=== PATIENT | male | born 1985 | race Caucasian/White ===

== ENCOUNTER 2016-11-26 23:39 | Emergency (ER) | payer BC ==
[2016-11-26 23:45] VITALS: BP 119/67; PULSE 88; TEMP 97.6; BMI 27.8
--- NOTE | 2016-11-27 00:04 | PDOC ---
History of Present Illness - History of Present Illness Initial Comments: 11/27/16 00:20 Patient is a 31 year old male with no significant medical hx who is presenting to the ED with two days of progressive left lower back pain. Patient states that his pain started yesterday morning after he woke up that was a mild pain but worsened today. The patient denies any trauma or heavy lifting. He reports that the pain worsens when he sits up and lies on his back. His pain relieves when he is lying flat on his stomach. 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 Denies urinary/bladder incontinence, weakness, numbness or tingling. <Felisa Skaggs - Last Filed: 11/27/16 01:32> <Doc Golden - Last Filed: 11/27/16 01:42> - General Chief Complaint: Back Pain Stated Complaint: BACK PAIN Time Seen by Provider: 11/27/16 00:03 Past History <Felisa Skaggs - Last Filed: 11/27/16 01:32> - Surgical History Abdominal Surgery: Yes (appendectomy) - Immunization History Immunization Up to Date: Yes - Psycho/Social/Smoking Cessation Hx Suicidal Ideation: No Smoking History: Current every day smoker Number of Cigarettes Smoked Daily: 6 Information on smoking cessation initiated: No Hx Alcohol Use: No Drug/Substance Use Hx: No Substance Use Type: None <Doc Golden - Last Filed: 11/27/16 01:42> - Past Medical History Allergies/Adverse Reactions: Allergies Allergy/AdvReac Type Severity Reaction Status Date / Time No Known Allergies Allergy Verified 11/26/16 23:44 Home Medications: Ambulatory Orders Cyclobenzaprine HCl [Flexeril 10 mg] 10 mg PO BID PRN #20 tablet 11/27/16 Ibuprofen [Motrin -] 600 mg PO QID #40 tablet 11/27/16 Review of Systems - Review of Systems Comments:: 11/27/16 00:25 GENERAL/CONSTITUTIONAL: No fever or chills. No weakness. HEAD, EYES, EARS, NOSE AND THROAT: No change in vision. No ear pain or discharge. No sore throat. CARDIOVASCULAR: No chest pain or shortness of breath. RESPIRATORY: No cough, wheezing, or hemoptysis. GASTROINTESTINAL: No nausea, vomiting, diarrhea or constipation. GENITOURINARY: No dysuria, frequency, or change in urination. MUSCULOSKELETAL: Left lower back pain. No joint or muscle swelling or pain. No neck pain. ENDOCRINE: No increased thirst. No abnormal weight change. SKIN: No rash NEUROLOGIC: No headache, vertigo, loss of consciousness, or change in strength/ sensation. <SharifaFelisa - Last Filed: 11/27/16 01:32> *Physical Exam - Vital Signs Last Vital Signs Temp Pulse Resp BP Pulse Ox 97.6 F 88 20 119/67 99 11/26/16 23:44 11/26/16 23:44 11/26/16 23:44 11/26/16 23:44 11/26/16 23:44 - Physical Exam Comments: 11/27/16 00:26 GENERAL: Awake, alert, and fully oriented, in no acute distress HEAD: No signs of trauma EYES: PERRLA, EOMI, sclera anicteric, conjunctiva clear ENT: Auricles normal inspection, hearing grossly normal, nares patent, oropharynx clear without exudates. Moist mucosa NECK: Normal ROM, supple, no lymphadenopathy, JVD, or masses LUNGS: Breath sounds equal, clear to auscultation bilaterally. No wheezes, and no crackles HEART: Regular rate and rhythm, normal S1 and S2, no murmurs, rubs or gallops ABDOMEN: Soft, nontender, normoactive bowel sounds. No guarding, no rebound. No masses EXTREMITIES: Normal range of motion, no edema. No clubbing or cyanosis. No cords, erythema, or tenderness NEUROLOGICAL: Cranial nerves II through XII grossly intact. Normal speech, normal gait SKIN: Warm, Dry, normal turgor, no rashes or lesions noted. HEMATOLOGIC/LYMPHATIC: No anemia, easy bleeding, or history of blood clots. ALLERGIC/IMMUNOLOGIC: No hives or skin allergy. <SharifaFelisa - Last Filed: 11/27/16 01:32> - Vital Signs Last Vital Signs Temp Pulse Resp BP Pulse Ox 97.6 F 88 20 119/67 99 11/26/16 23:44 11/26/16 23:44 11/26/16 23:44 11/26/16 23:44 11/26/16 23:44 <Doc Golden - Last Filed: 11/27/16 01:42> ED Treatment Course - RADIOLOGY Radiograph Interpretation: 11/27/16 01:32 Manager Application: (chacorta) Report Date: 11/27/2016 00:55:00 Report Status: Preliminary Begin of Report Content Referring Physician: Doc Golden Patient Name: Fabio Ventura THIS IS A PRELIMINARY REPORT FROM [facility] EXAM: CT abdomen and pelvis without contrast IMAGES: 872 INDICATION: Right flank pain DATE OF SERVICE: 2016-11-27 00:55:25.0 COMPARISON: none FINDINGS: Lung bases are clear. The visualized cardiac chambers are normal size and configuration. Normal unenhanced liver, gallbladder, pancreas, spleen, adrenal glands and kidneys. The stomach and abdominal small and large bowel are normal. There is no aortic aneurysm. There is no significant retroperitoneal lymphadenopathy. The pelvic small and large bowel are normal. There is no evidence of appendicitis, although the appendix is not clearly visualized. The urinary bladder and prostate gland are normal. No pelvic free fluid is identified. There is no significant pelvic lymphadenopathy. IMPRESSION: No localizing signs for acute pathology. THIS DOCUMENT HAS BEEN ELECTRONICALLY SIGNED Farhat Camarena MD 11/27/2016 01:28 HUMAIRA Macias Please call [facility] Supervisor [phone] ([phone]) with questions. End of Report Content <Felisa Skaggs - Last Filed: 11/27/16 01:32> *DC/Admit/Observation/Transfer - Attestations Scribe Attestion: 11/27/16 00:26 Documentation prepared by Felisa Skaggs, acting as medical affairs specialist for Doc Golden MD. <Felisa Skaggs - Last Filed: 11/27/16 01:32> - Discharge Dispostion Admit: No - Attestations Physician Attestion: 11/27/16 00:04 Dr. Doc Brewer, attest that this document has been prepared under my direction and personally reviewed by me in its entirety. I further attest, that it accurately reflects all work, treatment, procedures and medical decision -making performed by me. <Doc Golden - Last Filed: 11/27/16 01:42> Diagnosis at time of Disposition: Acute lumbar myofascial strain Qualifiers: Encounter type: initial encounter Qualified Code(s): S39.012A - Strain of muscle, fascia and tendon of lower back, initial encounter - Discharge Dispostion Disposition: HOME Condition at time of disposition: Good - Prescriptions Prescriptions: Cyclobenzaprine HCl [Flexeril 10 mg] 10 mg PO BID PRN #20 tablet PRN Reason: Back Pain Ibuprofen [Motrin -] 600 mg PO QID #40 tablet - Patient Instructions Printed Discharge Instructions: DI for Low Back Pain Additional Instructions: Fabio- Sorry that this hurts so much, Please take a day or two off from work. Return to us if worse or any problems. Follow up with your regular doctor. Best- Dr. Doc Golden
[2016-11-27] MEDS ORDERED: KETOROLAC TROMETHAMINE 60 MG/2 ML VIAL IM ONE (00:34)
[2016-11-27] MEDS ORDERED: methylPREDNISolone ACET (DEPO) 80 MG/1 ML VIAL IM ONE (00:34)
[2016-11-27] MEDS ORDERED: KETOROLAC TROMETHAMINE 60 MG/2 ML VIAL ONE (00:41)
[2016-11-27 01:55] LABS: URINE APPEARANCE CLEAR; URINE BILIRUBIN NEGATIVE (NEGATIVE); URINE BLOOD NEGATIVE (NEGATIVE); URINE COLOR YELLOW; URINE GLUCOSE (UA) NEGATIVE (NEGATIVE); URINE KETONE NEGATIVE (NEGATIVE); URINE LEUK ESTERASE NEGATIVE (NEGATIVE); URINE NITRITE NEGATIVE (NEGATIVE); URINE PROTEIN NEGATIVE (NEGATIVE); URINE UROBILINOGEN NEGATIVE mg/dL (0.2-1.0)
== END 2016-11-27 02:35 | disposition home or self-care (01) ==
LOC: JER 23:39
PROC: 3E0233Z Introduction of Anti-inflammatory into Muscle, Percutaneous Approach (ICD-10-PCS; principal; 2016-11-26)
PROC: 3E0233Z Introduction of Anti-inflammatory into Muscle, Percutaneous Approach (ICD-10-PCS; 2016-11-26)
DX: S39.012A Strain of muscle, fascia and tendon of lower back, initial encounter (principal); F17.210 Nicotine dependence, cigarettes, uncomplicated
CPT/HCPCS: 72131-TC; 74176-TC; 81003; 99282-25

== ENCOUNTER 2016-11-27 19:02 | Emergency (ER) | payer BC ==
[2016-11-27 19:15] VITALS: BMI 28.0
[2016-11-27] MEDS ORDERED: SODIUM CHLORIDE 1,000 ML IV STA (19:33)
[2016-11-27] MEDS ORDERED: KETOROLAC TROMETHAMINE 30 MG/1 ML VIAL IM ONE (19:33)
[2016-11-27] MEDS ORDERED: diazePAM CARPU-JECT 10 MG/2 ML DISP.SYRIN IVPUSH ONE (19:33)
[2016-11-27] MEDS ORDERED: KETOROLAC TROMETHAMINE 30 MG/1 ML VIAL ONE (19:44)
[2016-11-27] MEDS ORDERED: diazePAM CARPU-JECT 10 MG/2 ML DISP.SYRIN ONE (19:44)
[2016-11-27 20:18] LABS: BASOPHIL 0.4 % (0-2.0); EOSINOPHIL 0.1 % (0-4.5); MCH 28.9 pg (25.7-33.7); MCHC 33.1 g/dl (32.0-35.9); MEAN CELL VOLUME 87.3 fl (80-96); MEAN PLT VOLUME 8.8 fl (7.5-11.1); PLATELET COUNT 209 K/MM3 (134-434); RDW 13.4 % (11.9-15.9); WHITE BLOOD COUNT 14.6 K/mm3 (4.0-10.0)
--- NOTE | 2016-11-27 20:20 | PDOC ---
*Physical Exam - Vital Signs Last Vital Signs Temp Pulse Resp BP Pulse Ox 98.2 F 63 20 133/76 99 11/27/16 19:13 11/27/16 19:13 11/27/16 19:13 11/27/16 19:13 11/27/16 19:25 ED Treatment Course - LABORATORY CBC & Chemistry Diagram: 11/27/16 19:45 11/27/16 19:45 - Medications Given in the ED: ED Medications Discontinued Medications Generic Name Dose Route Start Last Admin Trade Name Amanda PRN Reason Stop Dose Admin Diazepam 5 mg 11/27/16 19:33 11/27/16 19:41 Valium Injection - IVPUSH 11/27/16 19:34 5 mg ONCE ONE Administration Ketorolac Tromethamine 30 mg 11/27/16 19:33 11/27/16 19:41 Toradol Injection - IM 11/27/16 19:34 30 mg ONCE ONE Administration Medical Decision Making - Medical Decision Making 11/27/16 20:20 Pt seen by the Advanced Practice Provider under my direct supervision Ancillary studies reviewed I agree with plan as outlined by the Advanced Practice Provider GARTH Otero *DC/Admit/Observation/Transfer Diagnosis at time of Disposition: Osteoarthritis of back, Bulging discs - Referrals Referrals: Daniel Cobos MD [Staff Physician] - - Patient Instructions Printed Discharge Instructions: DI for Low Back Pain Additional Instructions: FOLLOW UP WITH DR. COBOS (ORTHOPEDIST) THIS WEEK FOR FURTHER EVALUATION. CONTINUE MEDICATIONS PRESCRIBED BY PREVIOUS PROVIDER. TAKE WARM SHOWERS AND GET LOTS OF REST. Print Language: MONGOLIAN - Post Discharge Activity Work/School Note: Back to Work
[2016-11-27 20:37] LABS: ALBUMIN 4.3 g/dl (3.4-5.0); ALK PHOS 95 U/L (45-117); ANION GAP 6 (8-16); BILIRUBIN,TOTAL 0.7 mg/dL (0.2-1.0); CALCIUM 9.5 mg/dL (8.5-10.1); CO2 28 mmol/L (21-32); CREATININE 1.1 mg/dL (0.7-1.3); GLUCOSE,RANDOM 90 mg/dL (74-106); SGOT/AST 29 U/L (15-37); SGPT/ALT 71 U/L (12-78); TOT PROT 7.4 g/dl (6.4-8.2)
--- NOTE | 2016-11-27 22:25 | PDOC ---
History of Present Illness - General Chief Complaint: Pain, Acute Stated Complaint: BACK PAIN Time Seen by Provider: 11/27/16 19:18 History Source: Patient Exam Limitations: No Limitations - History of Present Illness Initial Comments: 11/27/16 22:20 31yo Male patient with no significant past medical history presents to ED c/o worsening back pain. Patient states he was seen in this ED 11-26-2016, treated and released. He states being prescribed Ibuprofen and Cyclobenzaprine but medications are not working. Associated: Nausea. Patient denies any other complaints at this time. PCP- None. Occurred: reports: yesterday Severity: reports: moderate Pain Location: reports: back Method of Injury: No: unknown, assault, direct blow, fall, motor vehicle crash, other Modifying Factors: improves with: pain medication Loss of Consciousness: no loss of consciousness Associated Symptoms (Fall): denies symptoms Past History - Travel Traveled outside of the country in the last 30 days: No Close contact w/someone who was outside of country & ill: No - Past Medical History Allergies/Adverse Reactions: Allergies Allergy/AdvReac Type Severity Reaction Status Date / Time No Known Allergies Allergy Verified 11/27/16 19:12 Home Medications: Ambulatory Orders Cyclobenzaprine HCl [Flexeril 10 mg] 10 mg PO BID PRN #20 tablet 11/27/16 Ibuprofen [Motrin -] 600 mg PO QID #40 tablet 11/27/16 - Surgical History Abdominal Surgery: Yes (appendectomy) - Immunization History Immunization Up to Date: Yes - Psycho/Social/Smoking Cessation Hx Suicidal Ideation: No Smoking History: Current every day smoker Number of Cigarettes Smoked Daily: 6 Information on smoking cessation initiated: No Hx Alcohol Use: No Drug/Substance Use Hx: No Substance Use Type: None Trauma Specific PMHX - Complaint Specific PMHX Arthritis: No Back Injury: No Neck Injury: No Hx Sacro Iliac Joint Dysfunction: No Review of Systems - Review of Systems Able to Perform ROS?: Yes Is the patient limited Irish proficient: No Musculoskeletal: Yes: Back Pain All Other Systems: Reviewed and Negative *Physical Exam - Vital Signs Last Vital Signs Temp Pulse Resp BP Pulse Ox 98.2 F 63 20 133/76 99 11/27/16 19:13 11/27/16 19:13 11/27/16 19:13 11/27/16 19:11/27/16 19:25 - Physical Exam General Appearance: Yes: Nourished, Appropriately Dressed, Moderate Distress. No: Apparent Distress, Mild Distress, Severe Distress Respiratory/Chest: positive: Lungs Clear, Normal Breath Sounds. negative: Chest Tender, Respiratory Distress, Accessory Muscle Use, Labored Respiration, Rapid RR, Rhonchi, Stridor, Wheezing Cardiovascular: positive: Regular Rhythm, Regular Rate. negative: Edema, JVD Gastrointestinal/Abdominal: positive: Normal Bowel Sounds, Soft. negative: Distended, Guarding, Rebound, Tenderness Musculoskeletal: positive: Normal Inspection, Muscle Spasm. negative: CVA Tenderness, Vertebral Tenderness Extremity: positive: Normal Capillary Refill, Normal Inspection, Normal Range of Motion. negative: Pedal Edema, Swelling, Calf Tenderness, Erythema, Inflammation Integumentary: positive: Normal Color, Dry, Warm. 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 NML intact, Fully Oriented, Alert, Normal Mood/ Affect, Normal Response, Motor Strength 5/5 ED Treatment Course - LABORATORY CBC & Chemistry Diagram: 11/27/16 19:45 11/27/16 19:45 - ADDITIONAL ORDERS Additional order review: Laboratory Results 11/27/16 19:45 Sodium 138 Potassium 4.3 Chloride 104 Carbon Dioxide 28 Anion Gap 6 L BUN 18 Creatinine 1.1 Creat Clearance w eGFR > 60 Random Glucose 90 Calcium 9.5 Total Bilirubin 0.7 AST 29 ALT 71 Alkaline Phosphatase 95 Total Protein 7.4 Albumin 4.3 11/27/16 19:45 RBC 5.13 MCV 87.3 MCHC 33.1 RDW 13.4 MPV 8.8 Neutrophils % 79.0 Lymphocytes % 14.8 Monocytes % 5.7 Eosinophils % 0.1 Basophils % 0.4 - RADIOLOGY Radiology Studies Ordered: Category Date Time Status ABDOMEN & PELVIS CT WITH CONTR [CT] Stat CT Scan 11/27/16 19:34 Ordered - Medications Given in the ED: ED Medications Discontinued Medications Generic Name Dose Route Start Last Admin Trade Name Freq PRN Reason Stop Dose Admin Diazepam 5 mg 11/27/16 19:33 11/27/16 19:41 Valium Injection - IVPUSH 11/27/16 19:34 5 mg ONCE ONE Administration Sodium Chloride 1,000 mls @ 1,000 mls/hr 11/27/16 19:33 11/27/16 19:41 Normal Saline - IV 11/27/16 20:32 1,000 mls/hr ASDIR STA Administration Ketorolac Tromethamine 30 mg 11/27/16 19:33 11/27/16 19:41 Toradol Injection - IM 11/27/16 19:34 30 mg ONCE ONE Administration *DC/Admit/Observation/Transfer Diagnosis at time of Disposition: Bulging discs Osteoarthritis of back Qualifiers: Spinal osteoarthritis complication: unspecified spinal osteoarthritis Qualified Code(s): 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 COBOS (ORTHOPEDIST) THIS WEEK FOR FURTHER EVALUATION. CONTINUE MEDICATIONS PRESCRIBED BY PREVIOUS PROVIDER. TAKE WARM SHOWERS AND GET LOTS OF REST. Print Language: KAZAKH - Post Discharge Activity Work/School Note: Back to Work
[2016-11-28 00:39] VITALS: BP 123/78; PULSE 74; TEMP 98.5
== END 2016-11-28 00:37 | disposition home or self-care (01) ==
LOC: JER 19:02
PROC: 3E033NZ Introduction of Analgesics, Hypnotics, Sedatives into Peripheral Vein, Percutaneous Approach (ICD-10-PCS; principal; 2016-11-27)
PROC: 3E0233Z Introduction of Anti-inflammatory into Muscle, Percutaneous Approach (ICD-10-PCS; 2016-11-27)
PROC: 3E0337Z Introduction of Electrolytic and Water Balance Substance into Peripheral Vein, Percutaneous Approach (ICD-10-PCS; 2016-11-27)
DX: M51.85 Other intervertebral disc disorders, thoracolumbar region (principal); M47.815 Spondylosis without myelopathy or radiculopathy, thoracolumbar region; F17.210 Nicotine dependence, cigarettes, uncomplicated
CPT/HCPCS: 36415; 74177-TC; 80053; 85025; 99282-25

== ENCOUNTER 2020-12-26 10:34 | Emergency (ER) | payer BC, OTHER ==
[2020-12-26 10:38] VITALS: BP 131/74; PULSE 75; TEMP 98.1; BMI 23.0
[2020-12-26] MEDS ORDERED: diazePAM 5 MG TABLET PO ONE (10:42)
[2020-12-26] MEDS ORDERED: KETOROLAC TROMETHAMINE 30 MG/1 ML VIAL IM ONE (10:42)
[2020-12-26] MEDS ORDERED: LIDOCAINE 5% TOPICAL PATCH TP ONE (10:43)
[2020-12-26] MEDS ORDERED: KETOROLAC TROMETHAMINE 30 MG/1 ML VIAL ONE (10:45)
[2020-12-26] MEDS ORDERED: LIDOCAINE 5% TOPICAL PATCH ONE (10:45)
[2020-12-26] MEDS ORDERED: diazePAM 5 MG TABLET ONE (10:46)
[2020-12-26] MEDS ORDERED: LIDOCAINE PATCH REMOVAL MC ONE (22:00)
== END 2020-12-26 11:47 | disposition home or self-care (01) ==
LOC: JERFT 10:34
PROC: 3E0233Z Introduction of Anti-inflammatory into Muscle, Percutaneous Approach (ICD-10-PCS; principal; 2020-12-26)
DX: M54.5 Low back pain (principal)
CPT/HCPCS: 99283-25

== ENCOUNTER 2022-01-30 22:41 | Observation (INO) | payer OTHER ==
[2022-01-30 22:45] VITALS: BMI 24.4
[2022-01-31 00:58] LABS: BASO % 0.7 % (0-2.0); HEMATOCRIT 42.8 % (35.4-49); HEMOGLOBIN 14.8 GM/dL (11.7-16.9); LYMPH % 23.6 % (8-40); MCH 30.4 pg (25.7-33.7); MCHC 34.6 g/dl (32.0-35.9); MEAN CELL VOLUME 87.9 fl (80-96); MONO % 11.9 % (3.8-10.2); NEUT % 61.8 % (42.8-82.8); PLATELET COUNT 226 10^3/uL (134-434); RBC 4.86 M/mm3 (4.00-5.60); RDW 13.4 % (11.9-15.9); WHITE BLOOD COUNT 9.2 K/mm3 (4.0-10.0)
[2022-01-31 01:22] LABS: CALCIUM 9.2 mg/dL (8.5-10.1)
[2022-01-31 01:23] LABS: ALBUMIN 4.2 g/dl (3.4-5.0); BLOOD UREA NITROGEN 17.5 mg/dL (7-18)
[2022-01-31 01:26] LABS: CREATININE 1.1 mg/dL (0.55-1.3)
[2022-01-31 01:28] LABS: BILIRUBIN,TOTAL 0.5 mg/dL (0.2-1); TOT PROT 7.5 g/dl (6.4-8.2)
[2022-01-31 06:35] LABS: HEMATOCRIT 41.2 % (35.4-49); HEMOGLOBIN 14.3 GM/dL (11.7-16.9); MCH 29.9 pg (25.7-33.7); MCHC 34.6 g/dl (32.0-35.9); MEAN CELL VOLUME 86.5 fl (80-96); MEAN PLT VOLUME 7.9 fl (7.5-11.1); PLATELET COUNT 219 10^3/uL (134-434); RBC 4.76 M/mm3 (4.00-5.60); RDW 13.5 % (11.9-15.9); WHITE BLOOD COUNT 8.1 K/mm3 (4.0-10.0)
[2022-01-31 06:56] LABS: CALCIUM 8.6 mg/dL (8.5-10.1)
[2022-01-31 06:58] LABS: ALBUMIN 3.9 g/dl (3.4-5.0); BLOOD UREA NITROGEN 14.6 mg/dL (7-18)
[2022-01-31 07:00] LABS: PHOSPHOROUS 2.8 mg/dL (2.5-4.9)
[2022-01-31 07:01] LABS: CREATININE 0.9 mg/dL (0.55-1.3); TOT PROT 7.2 g/dl (6.4-8.2)
[2022-01-31 07:02] LABS: BILIRUBIN,TOTAL 0.5 mg/dL (0.2-1)
[2022-01-31] MEDS ORDERED: ENOXAPARIN NA (PORCINE) 40 MG/0.4 ML DISP.SYRIN SQ ONE (09:13)
[2022-01-31] MEDS: ENOXAPARIN NA (PORCINE) 40 MG/0.4 ML DISP.SYRIN SQ SCH (09:25)
[2022-01-31] MEDS: SODIUM CHLORIDE 1,000 ML IV SCH (09:25)
[2022-01-31 10:40] LABS: EPI CELLS 1 /uL (0-25.1); HYALINE CASTS 0 /uL (0-3.1); PH,URINE 6.5 (5.0-8.0); URINE APPEARANCE CLEAR; URINE BACTERIA 6 /uL (0-1359); URINE BILIRUBIN NEGATIVE (NEGATIVE); URINE COLOR YELLOW; URINE GLUCOSE (UA) NEGATIVE (NEGATIVE); URINE KETONE 2+ (NEGATIVE); URINE LEUK ESTERASE NEGATIVE (NEGATIVE); URINE NITRITE NEGATIVE (NEGATIVE); URINE PROTEIN NEGATIVE (NEGATIVE); URINE RBC 45 /uL (0-23.9); URINE WBC 1 /uL (0-25.8)
[2022-01-31 10:49] LABS: METHADONE, UR NEGATIVE (NEGATIVE); PHENCYCLIDINE,URINE NEGATIVE (NEGATIVE)
[2022-01-31 10:50] LABS: COCAINE, UR NEGATIVE (NEGATIVE); OPIATES, URI NEGATIVE (NEGATIVE); URINE AMPHETAMINES NEGATIVE (NEGATIVE); URINE BARBITURATES NEGATIVE (NEGATIVE); URINE BENZODIAZEPINES NEGATIVE (NEGATIVE)
[2022-01-31] MEDS: LORATADINE 10 MG TABLET PO SCH (12:00)
[2022-01-31] MEDS ORDERED: LORATADINE 10 MG TABLET ONE (14:22)
[2022-02-01 07:48] VITALS: RESP 18
[2022-02-01] MEDS: LORATADINE 10 MG TABLET PO SCH (10:34)
[2022-02-01] MEDS: ENOXAPARIN NA (PORCINE) 40 MG/0.4 ML DISP.SYRIN SQ SCH (10:34)
[2022-02-01] MEDS: SODIUM CHLORIDE 1,000 ML IV SCH ×2 (12:00→12:01)
[2022-02-02 08:32] LABS: CHLORIDE 108 mmol/L (98-107); SODIUM 141 mmol/L (136-145)
[2022-02-02 08:39] LABS: CALCIUM 8.9 mg/dL (8.5-10.1)
[2022-02-02 08:40] LABS: ALBUMIN 3.7 g/dl (3.4-5.0); ANION GAP 5 MMOL/L (8-16); BLOOD UREA NITROGEN 11.1 mg/dL (7-18); CO2 27 mmol/L (21-32); GLUCOSE,RANDOM 110 mg/dL (74-106)
[2022-02-02 08:43] LABS: CREATININE 0.9 mg/dL (0.55-1.3); SGOT/AST 17 U/L (15-37); SGPT/ALT 28 U/L (13-61)
[2022-02-02 08:44] LABS: BILIRUBIN,TOTAL 0.4 mg/dL (0.2-1)
[2022-02-02 08:45] LABS: TOT PROT 6.9 g/dl (6.4-8.2)
[2022-02-02 08:46] LABS: ALK PHOS 82 U/L (45-117)
[2022-02-02] MEDS: ENOXAPARIN NA (PORCINE) 40 MG/0.4 ML DISP.SYRIN SQ SCH ×2 (09:33→09:37)
[2022-02-02] MEDS: SODIUM CHLORIDE 1,000 ML IV SCH (09:33)
[2022-02-02] MEDS: LORATADINE 10 MG TABLET PO SCH (09:33)
[2022-02-03 06:02] VITALS: TEMP 97.8
[2022-02-03] MEDS: LORATADINE 10 MG TABLET PO SCH (10:10)
[2022-02-03] MEDS: ENOXAPARIN NA (PORCINE) 40 MG/0.4 ML DISP.SYRIN SQ SCH (10:10)
[2022-02-03 10:20] VITALS: BP 124/70; PULSE 67
[2022-02-03 14:02] LABS: CHOLESTEROL 175 mg/dL (50-200); TRIGLYCERIDES 113 mg/dL (0-150)
[2022-02-03 14:03] LABS: LDL CHOLESTEROL (ONLY SJRH) 113 mg/dL (5-100)
[2022-02-03 14:04] LABS: HDL CHOLESTEROL 31 mg/dL (40-60)
== END 2022-02-03 13:45 | disposition home or self-care (01) ==
LOC: JER 22:41 → JERBED 01-31 01:48 → J4S 01-31 19:10
PROVIDERS: ADMIT Internal Medicine
PROC: 3E0337Z Introduction of Electrolytic and Water Balance Substance into Peripheral Vein, Percutaneous Approach (ICD-10-PCS; principal; 2022-01-31)
DX: R55 Syncope and collapse (principal); B97.4 Respiratory syncytial virus as the cause of diseases classified elsewhere; M54.50 Low back pain, unspecified; F12.10 Cannabis abuse, uncomplicated; F17.210 Nicotine dependence, cigarettes, uncomplicated; Z91.010 Allergy to peanuts
CPT/HCPCS: 0241U-QW; 36415; 70450-TC; 71045-TC-FY; 80053; 80061; 80307; 81003; 82308; 82550; 82553; 82962; 83036; 83605; 83735; 84100; 84436; 84439; 84443; 84484; 85025; 85027; 93005; 93010; 93225; 93226; 93306-TC; 93880-TC; 96365; 99285-25; G0378